=== PATIENT | female | born 1990 | race Caucasian/White ===

== ENCOUNTER 2016-07-07 15:36 | Observation (INO) | payer OTHER, MEDICAID ==
[2016-07-07] MEDS ORDERED: NS 1,000 ML IV ONE (15:45)
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
[2016-07-07 16:06] LABS: COLOR PALE YELLOW; LEUKOCYTE ESTERASE,URINE NEGATIVE (NEGATIVE); NITRITE,URINE NEGATIVE (NEGATIVE)
[2016-07-07 16:07] LABS: % IMMATURE GRANULYOCYTES 0.3 % (0.0-1.1); ABSOLUTE IMMATURE GRANULOCYTES 0.02 10^3/uL (0.00-0.10); ADD DIFF? NO; ADD MORPH? NO; ADD SCAN? NO; ATYPICAL LYMPHOCYTE FLAG 30 (0-99); FRAGMENT RBC FLAG 0 (0-99); HEMOGLOBIN 13.6 g/dL (12.6-16.3); LEFT SHIFT FLG 0 (0-99); LIPEMIA HEMOLYSIS FLAG 90 (0-99); MEAN CELL HEMOGLOBIN 30.3 pg (27.9-34.1); MEAN CELL VOLUME 89.1 fL (81.5-99.8); MEAN PLATELET VOLUME 10.4 fL (8.7-11.7); PLATELET CLUMPS FLAG 0 (0-99); PLATELET COUNT 254 10^3/uL (150-400); RED BLOOD CELL COUNT 4.49 10^6/uL (4.18-5.33); RED CELL DISTRIBUTION WIDTH 13.4 % (11.5-15.2)
[2016-07-07] MEDS ORDERED: IOPAMIDOL (ISOVUE 370) 100 ML BTL IV ONE (16:07)
[2016-07-07 16:16] LABS: APTT 25.2 SEC (23.0-38.0); INR 1.02 (0.83-1.16); PROTIME(PATIENT) 13.3 SEC (12.0-15.0)
[2016-07-07 16:38] LABS: ANION GAP 14 mEq/L (8-16); CALCIUM 9.4 mg/dL (8.5-10.4); CARBON DIOXIDE 19 mEq/l (22-31); CHLORIDE 100 mEq/L (97-110); CREATININE 0.7 mg/dL (0.6-1.0); ETHANOL SERUM < 10 mg/dL (0-10); GLOMERULAR FILTRATION RATE > 60; GLUCOSE 98 mg/dL (70-100); POTASSIUM 3.5 mEq/L (3.5-5.2); SODIUM 133 mEq/L (134-144)
[2016-07-07] MEDS ORDERED: LORazepam 2 MG/ML INJ IVP ONE (18:42)
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
[2016-07-07] MEDS ORDERED: IBUPROFEN 600 MG TAB PO PRN (19:20)
[2016-07-07] MEDS ORDERED: HYDROCODONE/APAP 5/325 TAB PO PRN (19:20)
[2016-07-07] MEDS ORDERED: NALOXONE HCL 0.4 MG/ML INJ IVP PRN (19:20)
[2016-07-07] MEDS ORDERED: ONDANSETRON DISINTEGRATING 4 MG TAB PO PRN (19:20)
[2016-07-07] MEDS ORDERED: LORazepam 2 MG/ML INJ IVP PRN (19:20)
[2016-07-07 19:58] VITALS: RESP 16
[2016-07-08 07:54] VITALS: BP 108/61; TEMP 98.5
[2016-07-08 12:36] VITALS: PULSE 78; O2SAT 95
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
== END 2016-07-08 16:16 | disposition home or self-care (01) ==
LOC: EDUNIT# → F3E 19:50
PROVIDERS: ADMIT Surgery; ATTEND Surgery
DX: S27.321A Contusion of lung, unilateral, initial encounter (principal); S20.312A Abrasion of left front wall of thorax, initial encounter; S70.211A Abrasion, right hip, initial encounter; S70.02XA Contusion of left hip, initial encounter; W22.11XA Striking against or struck by driver side automobile airbag, initial encounter; V43.52XA Car driver injured in collision with other type car in traffic accident, initial encounter; Y92.410 Unspecified street and highway as the place of occurrence of the external cause; Y99.8 Other external cause status; F17.200 Nicotine dependence, unspecified, uncomplicated
CPT/HCPCS: 70450; 71010; 71260; 72125; 74177; 96361; 96374; 97165; 99285; G0378; 82947-QW; G0480; J2060; Q9967

== ENCOUNTER 2016-07-10 20:11 | Emergency (ER) | payer OTHER, MEDICAID ==
[2016-07-10] MEDS ORDERED: IOPAMIDOL (ISOVUE-300) 100 ML BTL IV ONE (20:54)
[2016-07-10 20:58] LABS: % IMMATURE GRANULYOCYTES 0.3 % (0.0-1.1); ABSOLUTE IMMATURE GRANULOCYTES 0.03 10^3/uL (0.00-0.10); ADD DIFF? NO; ADD MORPH? NO; ADD SCAN? NO; ATYPICAL LYMPHOCYTE FLAG 0 (0-99); FRAGMENT RBC FLAG 0 (0-99); HEMATOCRIT 40.7 % (38.0-47.0); HEMOGLOBIN 13.6 g/dL (12.6-16.3); LEFT SHIFT FLG 0 (0-99); LIPEMIA HEMOLYSIS FLAG 80 (0-99); MEAN CELL HEMOGLOBIN CONCENTR. 33.4 g/dL (32.4-36.7); MEAN CELL VOLUME 89.8 fL (81.5-99.8); MEAN PLATELET VOLUME 10.9 fL (8.7-11.7); PLATELET CLUMPS FLAG 0 (0-99); PLATELET COUNT 198 10^3/uL (150-400); RED BLOOD CELL COUNT 4.53 10^6/uL (4.18-5.33); RED CELL DISTRIBUTION WIDTH 13.2 % (11.5-15.2)
[2016-07-10 21:14] LABS: ANION GAP 10 mEq/L (8-16); CALCIUM 9.3 mg/dL (8.5-10.4); CARBON DIOXIDE 24 mEq/l (22-31); CHLORIDE 103 mEq/L (97-110); CREATININE 0.7 mg/dL (0.6-1.0); GLOMERULAR FILTRATION RATE > 60; GLUCOSE 83 mg/dL (70-100); POTASSIUM 3.9 mEq/L (3.5-5.2); SODIUM 137 mEq/L (134-144)
[2016-07-10] MEDS ORDERED: NS 1,000 ML IV ONE (21:15)
[2016-07-10 21:55] VITALS: BP 113/64; PULSE 59; RESP 16; TEMP 98.4; O2SAT 92
[2016-07-10 22:01] LABS: COLOR YELLOW; LEUKOCYTE ESTERASE,URINE NEGATIVE (NEGATIVE); NITRITE,URINE NEGATIVE (NEGATIVE)
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
== END 2016-07-10 22:55 | disposition home or self-care (01) ==
DX: R10.30 Lower abdominal pain, unspecified (principal); K92.1 Melena; F17.200 Nicotine dependence, unspecified, uncomplicated
CPT/HCPCS: Q9967

== ENCOUNTER 2017-04-07 01:40 | Emergency (ER) | payer MEDICAID, OTHER ==
[2017-04-07 01:45] VITALS: RESP 18
--- NOTE | 2017-04-07 02:23 | EDPHY ---
H & P Stated Complaint: SOB, COUGH, ANXIETY, WORRIED AND C.P. Source: Patient Exam Limitations: No limitations - Personal History LMP (Females 10-55): Now Current Tetanus/Diphtheria Vaccine: Unsure Current Tetanus Diphtheria and Acellular Pertussis (TDAP): Unsure - Medical/Surgical History Hx Asthma: No Hx Chronic Respiratory Disease: No Hx Diabetes: No Hx Cardiac Disease: No Hx Renal Disease: No Hx Cirrhosis: No Hx Alcoholism: No Hx HIV/AIDS: No Hx Splenectomy or Spleen Trauma: No Other PMH: PMH: bulimia, ANXIETY. PSH: denies - Social History Smoking Status: Light smoker Time Seen by Provider: 04/07/17 01:48 HPI/ROS: HPI The patient presents with shortness of breath, chest pressure, sensation of throat closing. Symptoms have been present for the last 1 week and are episodic. They occur mostly at night while she is at rest. She says that it is difficult to breathe and occasionally she is worried that she will stop breathing if she does not take a deep breath. The chest pressure she feels throughout her chest though it does radiate to the jaw and throat and give the sensation that her throat is closing. She has had a cough as well for the last 1 week and has been taking Mucinex to see if this helps her symptoms. She does have a history of anxiety and depression, she stopped taking her Pristiq on March 22 because of cost issues and she felt it was generally not helping. She does take Adderall 40 mg daily for the last 1 and half years. She has had no changes in the doses lately.. REVIEW OF SYSTEMS Constitutional: No fever, no chills. Eyes: No discharge. ENT: No sore throat. Cardiovascular: No chest pain, no palpitations. Respiratory: No cough, no shortness of breath. Gastrointestinal: No abdominal pain, no vomiting. Genitourinary: No hematuria. Musculoskeletal: No back pain. Skin: No rashes. Neurological: No headache. PMHx: History of anxiety and depression Soc Hx: Half pack per day smoker, no alcohol or drugs, lives alone, currently unemployed PHYSICAL General Appearance: Alert, anxious appearing Eyes: Pupils equal and round no pallor or injection ENT, Mouth: Mucous membranes moist Respiratory: There are no retractions, lungs are clear to auscultation Cardiovascular: Regular rate and rhythm Gastrointestinal: Abdomen is soft and non-tender, no masses, bowel sounds normal Neurological: A&O, moves all extremities Skin: Warm and dry, no rashes Musculoskeletal: Neck is supple non tender Extremities: symmetrical, full range of motion Psychiatric: Patient is oriented X 3, there is no agitation (Lynsey Ponce) Constitutional: Initial Vital Signs Temperature (C) 36.4 C 04/07/17 01:41 Heart Rate 85 04/07/17 01:41 Respiratory Rate 18 04/07/17 01:41 Blood Pressure 123/76 H 04/07/17 01:41 O2 Sat (%) 100 04/07/17 01:41 O2 Delivery Mode Room Air Allergies/Adverse Reactions: No Known Allergies Allergy (Verified 04/07/17 01:45) Home Medications: Medication Instructions Recorded Calcium Carbonate [Tums 500MG (*)] 1,000 mg PO BID 07/07/16 Dextroamphetamine/Amphetamine 20 mg PO DAILY 07/07/16 [Adderall Xr 20 mg Capsule] Medical Decision Making Differential Diagnosis: 26-year-old female, history of anxiety and depression, presents from home with 1 week of episodic shortness of breath, chest pressure, sensation of throat closing. Exam is relatively benign, though she does appear quite anxious. Differential diagnosis includes pneumonia, pneumothorax, pulmonary embolism, arrhythmia, pericarditis. In the emergency department, I offered patient medication for anxiety, however she declined. Labs were checked and were all unremarkable. Chest x-ray was normal. She feels well enough to go home. I have advised that she obtain a primary care doctor, she says she has not been seen by 1 in some time. She also should have follow-up with her therapist. She will be discharged home. (Lynsey Ponce) Other Provider: I was notified by Radiology of over read of left apical pleural thickening likely artifact but possibly loculation with repeat x-ray recommended as an outpatient. I called and left a message on the patient's cell phone to notify her of this. (Rubén Green) - Data Points Laboratory Results: Laboratory Results 04/07/17 02:30 04/07/17 02:30 Medications Given: Discontinued Medications Potassium Chloride (Klor Packets) 20 meq PO EDNOW ONE Stop: 04/07/17 03:24 Last Admin: 04/07/17 03:30 Dose: 20 meq Departure - Departure Disposition: Home, Routine, Self-Care Clinical Impression: Shortness of breath Condition: Good Instructions: Dyspnea (ED) Additional Instructions: Please return to the emergency department if your worse in any way. The cause of your symptoms is not entirely clear, it could be related to anxiety. We have evaluated you for any life-threatening problems and thankfully your testing is normal. Referrals: [facility],. [Clinic] - As per Instructions
--- NOTE | 2017-04-07 02:27 | CPEKG ---
Heart Rate: 61 RR Interval: 984 QRSD Interval: 88 QT Interval: 500 QTC Interval: 504 QRS Browning: 41 T Wave Browning: -22 EKG Severity - ABNORMAL ECG - EKG Impression: ATRIAL FIBRILLATION EKG Impression: NONSPECIFIC T ABNORMALITIES, INFERIOR LEADS EKG Impression: PROLONGED QT INTERVAL Electronically Signed By: Lynsey Ponce 07-Apr-2017 06:30:42
[2017-04-07 02:47] LABS: PLATELET COUNT 187 10^3/uL (150-400)
[2017-04-07] MEDS ORDERED: POTASSIUM CL 20 MEQ PKT PO ONE (03:23)
[2017-04-07 04:02] VITALS: BP 113/71; PULSE 63; TEMP 98.1; O2SAT 95
== END 2017-04-07 04:00 | disposition home or self-care (01) ==
DX: R06.02 Shortness of breath (principal); F17.200 Nicotine dependence, unspecified, uncomplicated

== ENCOUNTER → 2018-07-28 | Outpatient (CLI) | payer MEDICAID | LOC: BMCIMAGING 11:24 | PROVIDERS: ATTEND Physician Assistant | DX: K59.00 Constipation, unspecified (principal) ==